=== PATIENT | female | born 1975 | race Caucasian/White ===

== ENCOUNTER → 2018-01-29 | Outpatient (CLI) | payer BC ==
--- NOTE | 2018-01-29 14:43 | MM ---
Reason for exam: screening (asymptomatic). Last mammogram was performed 1 year and 7 months ago. History: Family history of breast cancer in paternal aunt at age 55 and breast cancer in aunt. Taking hormonal contraceptives for 21 years beginning at age 17. Taking estrogen. Physical Findings: A clinical breast exam by your physician is recommended on an annual basis and results should be correlated with mammographic findings. MG 3D Screening Mammo W/Cad Bilateral CC and MLO view(s) were taken. Prior study comparison: July 04, 2016, bilateral MG 3d screening mammo w/cad. September 20, 2013, bilateral digital screening mammo w/CAD. There are scattered fibroglandular densities. Finding #1: There is questionable developing architectural distortion in the outer quadrant posterior position of the right breast slice 42/77. Finding #2: There are typically benign round calcifications in both breasts. ASSESSMENT: Incomplete: need additional imaging evaluation, BI-RAD 0 RECOMMENDATION: Special view mammogram and ultrasound of the right breast. [facility] will attempt to contact patient to return for supplemental views and ultrasound.
== END | disposition home or self-care (01) ==
LOC: RADMAMWWP 10:03
PROVIDERS: ATTEND Obstetrics & Gynecology
DX: Z12.31 Encounter for screening mammogram for malignant neoplasm of breast (principal)
CPT/HCPCS: 77063; 77067

== ENCOUNTER → 2018-02-12 | Outpatient (CLI) | payer BC ==
--- NOTE | 2018-02-12 09:34 | MM ---
Reason for exam: additional evaluation requested from abnormal screening. Last mammogram was performed less than 1 month ago. History: Family history of breast cancer in paternal aunt at age 55 and breast cancer in aunt. Taking hormonal contraceptives for 21 years beginning at age 17. Taking estrogen. Physical Findings: Nurse Summary: 0.5cm nodule in the right breast at 10 o'clock (nurse kp). MG 3D Work Up W/Cad RT Spot compression CC and ML view(s) were taken of the right breast. Prior study comparison: January 29, 2018, bilateral MG 3d screening mammo w/cad. July 04, 2016, bilateral MG 3d screening mammo w/cad. There are scattered fibroglandular densities. The questioned lateral asymmetric density does not appear to persist on additional views. Palpable marker 10 o'clock. These results were verbally communicated with the patient and result sheet given to the patient on 02/12/18. ASSESSMENT: Incomplete: need additional imaging evaluation, BI-RAD 0 RECOMMENDATION: Ultrasound of the right breast. (upper outer quadrant and palpable)
--- NOTE | 2018-02-12 09:39 | USB ---
Reason for exam: additional evaluation requested from abnormal screening. History: Family history of breast cancer in paternal aunt at age 55 and breast cancer in aunt. Taking hormonal contraceptives for 21 years beginning at age 17. Taking estrogen. US Breast Workup RT Right limited breast ultrasound including focal area of concern, retroareolar and axilla demonstrates no cystic or solid lesion seen. Scanned 9-12 o'clock including palpable. Dense tissue was noted here. These results were verbally communicated with the patient and result sheet given to the patient on 02/12/18. ASSESSMENT: Negative, BI-RAD 1 RECOMMENDATION: Return to routine screening mammogram schedule for both breasts.
== END | disposition home or self-care (01) ==
LOC: RADMAMWWP 08:13
PROVIDERS: ATTEND Obstetrics & Gynecology
DX: R92.8 Other abnormal and inconclusive findings on diagnostic imaging of breast (principal)
CPT/HCPCS: 77061; 77065

== ENCOUNTER → 2019-10-14 | Outpatient (CLI) | payer BC ==
--- NOTE | 2019-10-14 11:51 | MM ---
Reason for exam: screening (asymptomatic). Last mammogram was performed 1 year and 8 months ago. History: Family history of breast cancer in paternal aunt at age 55 and breast cancer in aunt. Taking hormonal contraceptives for 21 years beginning at age 17. Taking estrogen. Physical Findings: A clinical breast exam by your physician is recommended on an annual basis and results should be correlated with mammographic findings. MG 3D Screening Mammo W/Cad Bilateral CC and MLO view(s) were taken. Prior study comparison: February 12, 2018, right breast MG 3d work up w/cad RT. January 29, 2018, bilateral MG 3d screening mammo w/cad. There are scattered fibroglandular densities. Benign appearing bilateral calcifications. No suspicious abnormality. No significant changes when compared with prior studies. ASSESSMENT: Benign, BI-RAD 2 RECOMMENDATION: Routine screening mammogram of both breasts in 1 year.
== END ==
LOC: RADMAMWWP 10:10
PROVIDERS: ATTEND Obstetrics & Gynecology
DX: Z12.31 Encounter for screening mammogram for malignant neoplasm of breast (principal)
CPT/HCPCS: 77063; 77067

== ENCOUNTER → 2021-11-26 | Outpatient (CLI) | payer BC ==
--- NOTE | 2021-11-29 10:16 | MM ---
Reason for exam: screening (asymptomatic). Last mammogram was performed 2 years and 1 month ago. History: Family history of breast cancer in paternal aunt at age 55 and breast cancer in paternal aunt. Took hormonal contraceptives for 21 years beginning at age 17. Took estrogen for 25 years beginning at age 17. Physical Findings: A clinical breast exam by your physician is recommended on an annual basis and results should be correlated with mammographic findings. MG 3D Screening Mammo W/Cad Bilateral CC and MLO view(s) were taken. Prior study comparison: October 14, 2019, bilateral MG 3d screening mammo w/cad. February 12, 2018, right breast MG 3d work up w/cad RT. There are scattered fibroglandular densities. Distortion upper outer right breast. This finding is changed when compared with previous exams. ASSESSMENT: Incomplete: need additional imaging evaluation, BI-RAD 0 RECOMMENDATION: Special view mammogram of the right breast. If lesion persists on supplemental views, image directed ultrasound is recommended. [facility] will attempt to contact patient to return for supplemental views and ultrasound if indicated.
== END | disposition home or self-care (01) ==
LOC: RADMAMWWP 10:11
PROVIDERS: ATTEND Obstetrics & Gynecology
DX: Z12.31 Encounter for screening mammogram for malignant neoplasm of breast (principal); Z80.3 Family history of malignant neoplasm of breast
CPT/HCPCS: 77063; 77067

== ENCOUNTER → 2021-12-08 | Outpatient (CLI) | payer BC ==
--- NOTE | 2021-12-08 10:54 | MM ---
Reason for exam: additional evaluation requested from abnormal screening. Last mammogram was performed less than 1 month ago. History: Family history of breast cancer in paternal aunt at age 55 and breast cancer in paternal aunt. Took hormonal contraceptives for 21 years beginning at age 17. Took estrogen for 25 years beginning at age 17. Physical Findings: A clinical breast exam by your physician is recommended on an annual basis and results should be correlated with mammographic findings. MG 3D Work Up W/Cad RT Spot compression CC, spot compression MLO, and LM view(s) were taken of the right breast. Prior study comparison: November 26, 2021, bilateral MG 3d screening mammo w/cad. October 14, 2019, bilateral MG 3d screening mammo w/cad. There are scattered fibroglandular densities. No discrete abnormality persists on additional views. Results were given to the patient verbally at the time of the exam. ASSESSMENT: Negative, BI-RAD 1 RECOMMENDATION: Return to routine screening mammogram schedule for both breasts.
== END | disposition home or self-care (01) ==
LOC: RADMAMWWP 10:15
PROVIDERS: ATTEND Obstetrics & Gynecology
DX: R92.8 Other abnormal and inconclusive findings on diagnostic imaging of breast (principal); Z80.3 Family history of malignant neoplasm of breast
CPT/HCPCS: 77061; 77065

== ENCOUNTER 2022-06-23 17:31 | Inpatient (IN) | payer BC ==
[2022-06-23] MEDS ORDERED: ONDANSETRON 4 MG/2 ML VIAL IVP STA (18:32)
[2022-06-23] MEDS ORDERED: PANTOPRAZOLE 40 MG/10 ML VIAL IVP STA (18:32)
[2022-06-23] MEDS ORDERED: MORPHINE SULFATE 4 MG/ML SYRINGE IV STA (18:32)
[2022-06-23] MEDS ORDERED: KETOROLAC 15 MG/ML 1 ML VIAL IVP STA (18:32)
[2022-06-23] MEDS ORDERED: SODIUM CHLORIDE 0.9% 1,000 ML IV STA ×2 (18:32)
--- NOTE | 2022-06-23 18:40 | ED ---
General Adult HPI - General Chief complaint: Abdominal Pain Stated complaint: Kidney Stones, Sent by PCP Time Seen by Provider: 06/23/22 18:20 Source: patient Mode of arrival: ambulatory Limitations: no limitations - History of Present Illness Initial comments: Patient is a 47-year-old female who presents emergency Department complaining of left-sided flank pain. Patient received CT imaging at [facility] outpatient which showed a large 4 mm x 7 mm kidney stone. Is located on the left side. Patient also had a urinalysis performed earlier in the week and was diagnosed with UTI. I called by her PCP and instructed to come to the emergency department for admission to hospital for IV antibiotics. She's been having intermittent left-sided flank pain since Monday. No history of kidney stones. Endorses nausea but no vomiting. Denies diarrhea. Denies any chest pain or shortness of breath. Has chills but no fevers. Denies any other acute complaints at this time. States the pain as sharp, achy that is primarily in her left flank that radiates towards her lower back as well as around to her left groin. Denies any other acute complaints at this time. Abdomen is somewhat improved with Tylenol and Motrin at home.Denies any pain with urination. Does endorse darker urine. Denies any vaginal discharge or bleeding. - Related Data Home Medications Medication Instructions Recorded Confirmed Atorvastatin [Lipitor] 20 mg PO HS 06/23/22 06/23/22 Calcium Carbonate [Calcium] 1,200 mg PO DAILY 06/23/22 06/23/22 Cetirizine HCl [Zyrtec] 10 mg PO DAILY 06/23/22 06/23/22 Ciprofloxacin HCl [Cipro] 500 mg PO BID 06/23/22 06/23/22 Cyclobenzaprine [Flexeril] 10 mg PO HS 06/23/22 06/23/22 Fish Oil/Dha/Epa [Fish Oil 1,200 2 cap PO DAILY 06/23/22 06/23/22 mg Fish Oil] Mv,Calcium,Min/Iron/Folic/Vitk 1 tab PO DAILY 06/23/22 06/23/22 [One-A-Day Women's Complete Tab] Omeprazole [PriLOSEC] 20 mg PO DAILY 06/23/22 06/23/22 Spironolactone [Aldactone] 50 mg PO DAILY 06/23/22 06/23/22 Vitamin B Complex 1 cap PO DAILY 06/23/22 06/23/22 Allergies Allergy/AdvReac Type Severity Reaction Status Date / Time No Known Allergies Allergy Verified 06/23/22 20:31 Review of Systems ROS Statement: Those systems with pertinent positive or pertinent negative responses have been documented in the HPI. Review of Systems: CONST: Denies fever EYES: Denies blurry vision ENT: Denies nasal congestion C/V: Denies Chest pain RESP: Denies shortness of breath GI: Endorses flank pain : Denies dysuria SKIN: Denies rash. MSK: Denies joint pain. NEURO: Denies headache ROS Other: All systems not noted in ROS Statement are negative. Past Medical History Past Medical History: Coronary Artery Disease (CAD), GERD/Reflux, Hypertension History of Any Multi-Drug Resistant Organisms: None Reported Past Surgical History: Orthopedic Surgery Additional Past Surgical History / Comment(s): Gastric sleeve, ENT Past Psychological History: No Psychological Hx Reported Smoking Status: Never smoker Past Alcohol Use History: Occasional Past Drug Use History: None Reported General Exam - General Exam Comments Initial Comments: General: Appears in no acute distress. HEAD: Normal with no signs of head trauma. EYES: PERRLA, EOMI, conjunctiva normal, no discharge. ENT: Hearing grossly intact, normal oropharynx. RESPIRATORY: Clear breath sounds bilaterally. No wheezes, rales, or rhonchi. C/V: Regular rate and rhythm. S1 and S2 auscultated, no edema, peripheral pulses 2+ and intact throughout ABD: Abdomen soft, nondistended. Tender to palpation left flank with radiation towards the left groin. Left CVA tenderness on palpation. No obvious tenderness on percussion. No guarding. No peritoneal signs. No rebound tenderness. EXT: Normal range of motion, no obvious deformity SKIN: No rashes or lesions observed on exposed skin. NEURO: Alert and oriented 4. Limitations: no limitations Course Vital Signs 06/23/22 06/23/22 06/23/22 18:01 18:24 21:30 Temperature 98.5 F 99.1 F Pulse Rate 116 H 115 H Respiratory 20 16 Rate Blood Pressure 143/85 106/58 O2 Sat by Pulse 100 99 Oximetry Medical Decision Making - Medical Decision Making Based on patient's presentation and physical exam, I'm concerned for a sudden nephrolithiasis as well as possible infected stone. We will obtain basic laboratory studies. We will obtain urinalysis and blood cultures. We will obtain the CT report from the outside hospital, and in the meantime we will obtain abdominal x-ray as well as ultrasound. Patient was in agreement this plan. She'll be given IV analgesic medications as well as antiemetics and IV fluids. Vital signs within acceptable limits, she is mildly tachycardic but likely secondary to pain. We did obtain a CT imaging from an outside facility and it showed a 4 x 7 mm stone with moderate hydronephrosis on the left side. Patient's laboratory studies are remarkable for leukocytosis of 16.8. Patient has an AK eye likely secondary to her stone. Urinalysis is remarkable for a signs of a UTI. KUB x- ray as interpreted by myself reveals intra-abdominal process. Ultrasound reveals mild left-sided hydronephrosis. On reevaluation, patient is feeling improved following pain medications. Vital signs remained within acceptable limits. We'll continue IV fluids. Continue pain medications. She was started on cefepime for her infected kidney stone. She'll be admitted to the hospital at this time. She was in agreement this plan. I did consult urology, Dr. Serrano who is in agreement to consult. Requested p atient be made nothing by mouth as he will likely place a stent tomorrow. I spoke with the admitting physician, Dr. Rene accepted the patient. Patient was admitted in stable condition. - Lab Data Result diagrams: 06/23/22 18:21 06/23/22 18:21 Lab Results 06/23/22 06/23/22 06/23/22 Range/Units 18:21 18:21 18:21 WBC 16.8 H (3.8-10.6) k/uL RBC 3.90 (3.80-5.40) m/uL Hgb 12.9 (11.4-16.0) gm/dL Hct 36.3 (34.0-46.0) % MCV 93.0 (80.0-100.0) fL MCH 33.2 (25.0-35.0) pg MCHC 35.7 (31.0-37.0) g/dL RDW 12.9 (11.5-15.5) % Plt Count 283 (150-450) k/uL MPV 7.9 Neutrophils % 91 % Lymphocytes % 5 % Monocytes % 3 % Eosinophils % 0 % Basophils % 0 % Neutrophils # 15.3 H (1.3-7.7) k/uL Lymphocytes # 0.8 L (1.0-4.8) k/uL Monocytes # 0.5 (0-1.0) k/uL Eosinophils # 0.1 (0-0.7) k/uL Basophils # 0.0 (0-0.2) k/uL PT (9.0-12.0) sec INR (<1.2) APTT (22.0-30.0) sec Sodium (137-145) mmol/L Potassium (3.5-5.1) mmol/L Chloride (98-107) mmol/L Carbon Dioxide (22-30) mmol/L Anion Gap mmol/L BUN (7-17) mg/dL Creatinine (0.52-1.04) mg/dL Est GFR (CKD-EPI)AfAm (>60 ml/min/1.73 sqM) Est GFR (CKD-EPI)NonAf (>60 ml/min/1.73 sqM) Glucose (74-99) mg/dL Calcium (8.4-10.2) mg/dL Total Bilirubin (0.2-1.3) mg/dL AST (14-36) U/L ALT (4-34) U/L Alkaline Phosphatase (38-126) U/L Total Protein (6.3-8.2) g/dL Albumin (3.5-5.0) g/dL Urine Color Dark Yellow Urine Appearance Turbid H (Clear) Urine pH 6.0 (5.0-8.0) Ur Specific [place] 1.028 (1.001-1.035) Urine Protein 2+ H (Negative) Urine Glucose (UA) Negative (Negative) Urine Ketones Trace H (Negative) Urine Blood Large H (Negative) Urine Nitrite Negative (Negative) Urine Bilirubin Negative (Negative) Urine Urobilinogen 2.0 (<2.0) mg/dL Ur Leukocyte Esterase Large H (Negative) Urine RBC 48 H (0-5) /hpf Urine WBC >182 H (0-5) /hpf Urine WBC Clumps Occasional H (None) /hpf Ur Squamous Epith Cells 18 H (0-4) /hpf Urine Bacteria Rare H (None) /hpf Hyaline Casts 18 H (0-2) /lpf Urine Mucus Occasional H (None) /hpf Urine HCG, Qual Not Detected (Not Detectd) 06/23/22 06/23/22 Range/Units 18:21 19:15 WBC (3.8-10.6) k/uL RBC (3.80-5.40) m/uL Hgb (11.4-16.0) gm/dL Hct (34.0-46.0) % MCV (80.0-100.0) fL MCH (25.0-35.0) pg MCHC (31.0-37.0) g/dL RDW (11.5-15.5) % Plt Count (150-450) k/uL MPV Neutrophils % % Lymphocytes % % Monocytes % % Eosinophils % % Basophils % % Neutrophils # (1.3-7.7) k/uL Lymphocytes # (1.0-4.8) k/uL Monocytes # (0-1.0) k/uL Eosinophils # (0-0.7) k/uL Basophils # (0-0.2) k/uL PT 12.6 H (9.0-12.0) sec INR 1.2 H (<1.2) APTT 31.9 H (22.0-30.0) sec Sodium 137 (137-145) mmol/L Potassium 3.6 (3.5-5.1) mmol/L Chloride 100 (98-107) mmol/L Carbon Dioxide 25 (22-30) mmol/L Anion Gap 12 mmol/L BUN 23 H (7-17) mg/dL Creatinine 1.59 H (0.52-1.04) mg/dL Est GFR (CKD-EPI)AfAm 45 (>60 ml/min/1.73 sqM) Est GFR (CKD-EPI)NonAf 39 (>60 ml/min/1.73 sqM) Glucose 120 H (74-99) mg/dL Calcium 9.3 (8.4-10.2) mg/dL Total Bilirubin 2.0 H (0.2-1.3) mg/dL AST 27 (14-36) U/L ALT 28 (4-34) U/L Alkaline Phosphatase 116 (38-126) U/L Total Protein 7.7 (6.3-8.2) g/dL Albumin 4.2 (3.5-5.0) g/dL Urine Color Urine Appearance (Clear) Urine pH (5.0-8.0) Ur Specific [place] (1.001-1.035) Urine Protein (Negative) Urine Glucose (UA) (Negative) Urine Ketones (Negative) Urine Blood (Negative) Urine Nitrite (Negative) Urine Bilirubin (Negative) Urine Urobilinogen (<2.0) mg/dL Ur Leukocyte Esterase (Negative) Urine RBC (0-5) /hpf Urine WBC (0-5) /hpf Urine WBC Clumps (None) /hpf Ur Squamous Epith Cells (0-4) /hpf Urine Bacteria (None) /hpf Hyaline Casts (0-2) /lpf Urine Mucus (None) /hpf Urine HCG, Qual (Not Detectd) Disposition Clinical Impression: Nephrolithiasis, UTI (urinary tract infection) Narrative: infected nephrolithiasis Disposition: ADMITTED IP TO THIS [facility] Condition: Stable Referrals: Raman Justice MD [Primary Care Provider] - 1-2 days Time of Disposition: 20:00
[2022-06-23 18:53] LABS: Basophils % (A) 0 %; Eosinophils # (A) 0.1 k/uL (0-0.7); Eosinophils % (A) 0 %; HCT 36.3 % (34.0-46.0); HGB 12.9 gm/dL (11.4-16.0); Lymphocytes # (A) 0.8 k/uL (1.0-4.8); Lymphocytes % (A) 5 %; MCH 33.2 pg (25.0-35.0); MCHC 35.7 g/dL (31.0-37.0); Mean Platelet Volume 7.9; Monocytes # (A) 0.5 k/uL (0-1.0); Monocytes % (A) 3 %; Neutrophils # (A) 15.3 k/uL (1.3-7.7); Neutrophils % (A) 91 %; Platelet Count 283 k/uL (150-450); RDW 12.9 % (11.5-15.5); WBC 16.8 k/uL (3.8-10.6)
[2022-06-23 18:56] LABS: Appearance,Urine Turbid (Clear); Bilirubin,Urine Negative (Negative); Blood,Urine Large (Negative); Color,Urine Dark Yellow; Glucose,Urine (UA) Negative (Negative); Ketones,Urine Trace (Negative); Protein,Urine 2+ (Negative); Specific Gravity,Urine 1.028 (1.001-1.035)
[2022-06-23 18:57] LABS: Bacteria,Urine Rare /hpf; Hyaline Casts,Urine 18 /lpf (0-2); Leukocyte Esterase,Urine Large (Negative); Mucus,Urine Occasional /hpf; Nitrite,Urine Negative (Negative); RBC,Urine 48 /hpf (0-5); Squamous Epithelial Cell,Urine 18 /hpf (0-4); WBC,Urine >182 /hpf (0-5)
[2022-06-23 19:01] LABS: Albumin 4.2 g/dL (3.5-5.0); Calcium 9.3 mg/dL (8.4-10.2); Potassium 3.6 mmol/L (3.5-5.1); Total Protein 7.7 g/dL (6.3-8.2)
[2022-06-23 19:47] LABS: INR 1.2 (<1.2); Partial Thromboplastin Time 31.9 sec (22.0-30.0); Prothrombin Time 12.6 sec (9.0-12.0)
[2022-06-23] MEDS ORDERED: CEFEPIME 2 GM in SODIUM CHLORIDE 0.9% 100 ML IVPB STA (19:56)
--- NOTE | 2022-06-23 20:11 | US ---
EXAMINATION TYPE: US renals and bladder DATE OF EXAM: 06/23/2022 COMPARISON: NONE CLINICAL HISTORY: eval for hydro/stone on left. Patient states she had a CT at a different hospital t hat showed a kidney stone in the left kidney. Pain x 3 days. EXAM MEASUREMENTS: Right Kidney: 11.6 x 5.7 x 5.6 cm Left Kidney: 13.0 x 5.9 x 6.8 cm Right Kidney: No hydronephrosis or masses seen. No calcification seen. Left Kidney: Mild hydronephrosis seen in left kidney, no calcification seen. Bladder: Mostly empty, no pathology visualized Bilateral Jets seen: No Incidental finding: Cholelithiasis. IMPRESSION: Mild left hydronephrosis.
[2022-06-23] MEDS ORDERED: NALOXONE 0.4 MG/ML 1 ML VIAL IV PRN (20:52)
[2022-06-23] MEDS ORDERED: KETOROLAC 15 MG/ML 1 ML VIAL IVP PRN (20:52)
[2022-06-23] MEDS ORDERED: ATORVASTATIN 20 MG TAB PO SCH (21:15)
[2022-06-23] MEDS ORDERED: CYCLOBENZAPRINE 10 MG TAB PO SCH (21:15)
--- NOTE | 2022-06-23 21:31 | XR ---
EXAMINATION TYPE: XR KUB 2 views DATE OF EXAM: 06/23/2022 9:16 PM CLINICAL HISTORY: Kidney stones TECHNIQUE: 2 upright views were obtained of the abdomen and pelvis COMPARISON: None. FINDINGS: Scattered gas is seen in non-distended small bowel loops. Gas and fecal material is seen in non-diste nded colon. There is no visceromegaly or pneumoperitoneum. No calcifications over the kidneys or the expected course of the ureters or bladder. The lung bases are clear and the osseous structures are intact. IMPRESSION: No acute radiographic process.
[2022-06-23] MEDS: MORPHINE SULFATE 4 MG/ML SYRINGE IV PRN (23:09)
[2022-06-24] MEDS: HEPARIN SODIUM,PORCINE/PF 5,000 UNIT/0.5 ML SYRINGE SQ SCH ×2 (02:28→16:42)
[2022-06-24 06:10] LABS: Basophils % (A) 0 %; Eosinophils % (A) 0 %; HCT 30.3 % (34.0-46.0); HGB 10.6 gm/dL (11.4-16.0); Lymphocytes # (A) 0.7 k/uL (1.0-4.8); Lymphocytes % (A) 7 %; MCH 32.8 pg (25.0-35.0); MCV 93.7 fL (80.0-100.0); Mean Platelet Volume 8.1; Monocytes # (A) 0.4 k/uL (0-1.0); Monocytes % (A) 4 %; Neutrophils % (A) 87 %; Platelet Count 225 k/uL (150-450); RBC 3.24 m/uL (3.80-5.40); WBC 10.4 k/uL (3.8-10.6)
[2022-06-24 06:20] LABS: Calcium 7.8 mg/dL (8.4-10.2); Potassium 3.7 mmol/L (3.5-5.1)
[2022-06-24] MEDS ORDERED: PANTOPRAZOLE 40 MG TABLET PO SCH (07:30)
[2022-06-24] MEDS ORDERED: SODIUM CHLORIDE 0.9% 1,000 ML IV SCH ×2 (08:45→11:45)
[2022-06-24] MEDS ORDERED: SPIRONOLACTONE 25 MG TAB PO SCH (09:00)
--- NOTE | 2022-06-24 09:59 | P.GSCN ---
History of Present Illness Consult date: 06/24/22 Reason for Consult: Infected nephrolithiasis Requesting physician: Mike Jiménez History of present illness: The patient is a 47-year-old female who presented to the emergency department on 06/23/22 with complaints of of left-sided flank pain x [address] imaging at [facility] outpatient which showed a large left 4 mm x 7 mm kidney stone. She also has had a urinalysis performed earlier in the week and was diagnosed with UTI. Patient's laboratory studies are remarkable for leukocytosis of 16.8. Patient has an ELDER likely secondary to her stone. Urinalysis is remarkable for a signs of a UTI. KUB x-ray reveals no intra- abdominal process. Renal ultrasound reveals mild left-sided hydronephrosis. She was started on cefepime for her infected kidney stone. Review of Systems - Constitutional Reports chills, Reports fever - Cardiovascular Denies chest pain, Denies shortness of breath - Gastrointestinal Reports nausea, Denies abdominal pain - Genitourinary Genitourinary: Reports flank pain, Reports urgency, Reports urinary frequency Past Medical History Past Medical History: Coronary Artery Disease (CAD), GERD/Reflux, Hypertension History of Any Multi-Drug Resistant Organisms: None Reported Past Surgical History: Orthopedic Surgery Additional Past Surgical History / Comment(s): Gastric sleeve, ENT Past Psychological History: No Psychological Hx Reported Smoking Status: Never smoker Past Alcohol Use History: Occasional Past Drug Use History: None Reported Medications and Allergies Home Medications Medication Instructions Recorded Confirmed Type Atorvastatin [Lipitor] 20 mg PO HS 06/23/22 06/23/22 History Calcium Carbonate [Calcium] 1,200 mg PO DAILY 06/23/22 06/23/22 History Cetirizine HCl [Zyrtec] 10 mg PO DAILY 06/23/22 06/23/22 History Ciprofloxacin HCl [Cipro] 500 mg PO BID 06/23/22 06/23/22 History Cyclobenzaprine [Flexeril] 10 mg PO HS 06/23/22 06/23/22 History Fish Oil/Dha/Epa [Fish Oil 1,200 2 cap PO DAILY 06/23/22 06/23/22 History mg Fish Oil] Mv,Calcium,Min/Iron/Folic/Vitk 1 tab PO DAILY 06/23/22 06/23/22 History [One-A-Day Women's Complete Tab] Omeprazole [PriLOSEC] 20 mg PO DAILY 06/23/22 06/23/22 History Spironolactone [Aldactone] 50 mg PO DAILY 06/23/22 06/23/22 History Vitamin B Complex 1 cap PO DAILY 06/23/22 06/23/22 History Allergies Allergy/AdvReac Type Severity Reaction Status Date / Time No Known Allergies Allergy Verified 06/23/22 20:31 Surgical - Exam Vital Signs Temp Pulse Resp BP Pulse Ox 98.5 F 116 H 20 143/85 100 06/23/22 18:01 06/23/22 18:01 06/23/22 18:01 06/23/22 18:01 06/23/22 18:01 General: Well developed, well nourished. No acute distress. HEENT: Head is atraumatic, normocephalic. Lungs: Respirations even and nonlabored. Abdomen/GI: Soft. no abdominal tenderness. : Left flank tenderness Musculoskeletal/ Extremities: CABRERA, no joint deformity or swelling. No gross atrophy. Vascular: No peripheral edema Skin: Warm and dry Neurologic: Awake, alert and oriented times 3. CN II-XII grossly intact. Psychiatric: Appropriate mood and affect. Results - Labs 06/24/22 05:40 06/24/22 05:40 Abnormal Lab Results - Last 24 Hours (Table) 06/23/22 06/23/22 06/23/22 Range/Units 18:21 18:21 18:21 WBC 16.8 H (3.8-10.6) k/uL RBC (3.80-5.40) m/uL Hgb (11.4-16.0) gm/dL Hct (34.0-46.0) % Neutrophils # 15.3 H (1.3-7.7) k/uL Lymphocytes # 0.8 L (1.0-4.8) k/uL PT (9.0-12.0) sec INR (<1.2) APTT (22.0-30.0) sec Sodium (137-145) mmol/L BUN 23 H (7-17) mg/dL Creatinine 1.59 H (0.52-1.04) mg/dL Glucose 120 H (74-99) mg/dL Calcium (8.4-10.2) mg/dL Total Bilirubin 2.0 H (0.2-1.3) mg/dL Urine Appearance Turbid H (Clear) Urine Protein 2+ H (Negative) Urine Ketones Trace H (Negative) Urine Blood Large H (Negative) Ur Leukocyte Esterase Large H (Negative) Urine RBC 48 H (0-5) /hpf Urine WBC >182 H (0-5) /hpf Urine WBC Clumps Occasional H (None) /hpf Ur Squamous Epith Cells 18 H (0-4) /hpf Urine Bacteria Rare H (None) /hpf Hyaline Casts 18 H (0-2) /lpf Urine Mucus Occasional H (None) /hpf 06/23/22 06/24/22 06/24/22 Range/Units 19:15 05:40 05:40 WBC (3.8-10.6) k/uL RBC 3.24 L (3.80-5.40) m/uL Hgb 10.6 L (11.4-16.0) gm/dL Hct 30.3 L (34.0-46.0) % Neutrophils # 9.0 H (1.3-7.7) k/uL Lymphocytes # 0.7 L (1.0-4.8) k/uL PT 12.6 H (9.0-12.0) sec INR 1.2 H (<1.2) APTT 31.9 H (22.0-30.0) sec Sodium 135 L (137-145) mmol/L BUN 21 H (7-17) mg/dL Creatinine 1.35 H (0.52-1.04) mg/dL Glucose 111 H (74-99) mg/dL Calcium 7.8 L (8.4-10.2) mg/dL Total Bilirubin (0.2-1.3) mg/dL Urine Appearance (Clear) Urine Protein (Negative) Urine Ketones (Negative) Urine Blood (Negative) Ur Leukocyte Esterase (Negative) Urine RBC (0-5) /hpf Urine WBC (0-5) /hpf Urine WBC Clumps (None) /hpf Ur Squamous Epith Cells (0-4) /hpf Urine Bacteria (None) /hpf Hyaline Casts (0-2) /lpf Urine Mucus (None) /hpf Microbiology - Last 24 Hours (Table) 06/23/22 18:21 Urine Culture - Preliminary Urine,Voided Diabetes panel 06/23/22 06/24/22 Range/Units 18:21 05:40 Sodium 137 135 L (137-145) mmol/L Potassium 3.6 3.7 (3.5-5.1) mmol/L Chloride 100 106 (98-107) mmol/L Carbon Dioxide 25 24 (22-30) mmol/L BUN 23 H 21 H (7-17) mg/dL Creatinine 1.59 H 1.35 H (0.52-1.04) mg/dL Glucose 120 H 111 H (74-99) mg/dL Calcium 9.3 7.8 L (8.4-10.2) mg/dL AST 27 (14-36) U/L ALT 28 (4-34) U/L Alkaline Phosphatase 116 (38-126) U/L Total Protein 7.7 (6.3-8.2) g/dL Albumin 4.2 (3.5-5.0) g/dL Calcium panel 06/23/22 06/24/22 Range/Units 18:21 05:40 Calcium 9.3 7.8 L (8.4-10.2) mg/dL Albumin 4.2 (3.5-5.0) g/dL Pituitary panel 06/23/22 06/24/22 Range/Units 18:21 05:40 Sodium 137 135 L (137-145) mmol/L Potassium 3.6 3.7 (3.5-5.1) mmol/L Chloride 100 106 (98-107) mmol/L Carbon Dioxide 25 24 (22-30) mmol/L BUN 23 H 21 H (7-17) mg/dL Creatinine 1.59 H 1.35 H (0.52-1.04) mg/dL Glucose 120 H 111 H (74-99) mg/dL Calcium 9.3 7.8 L (8.4-10.2) mg/dL Adrenal panel 06/23/22 06/24/22 Range/Units 18:21 05:40 Sodium 137 135 L (137-145) mmol/L Potassium 3.6 3.7 (3.5-5.1) mmol/L Chloride 100 106 (98-107) mmol/L Carbon Dioxide 25 24 (22-30) mmol/L BUN 23 H 21 H (7-17) mg/dL Creatinine 1.59 H 1.35 H (0.52-1.04) mg/dL Glucose 120 H 111 H (74-99) mg/dL Calcium 9.3 7.8 L (8.4-10.2) mg/dL Total Bilirubin 2.0 H (0.2-1.3) mg/dL AST 27 (14-36) U/L ALT 28 (4-34) U/L Alkaline Phosphatase 116 (38-126) U/L Total Protein 7.7 (6.3-8.2) g/dL Albumin 4.2 (3.5-5.0) g/dL Assessment and Plan Assessment: The patient does not have a history of kidney stones, but she has had UTI's in the past. She has chronic urgency and frequency. States her pain is primarily in her left flank that radiates towards her lower back as well as around to her left groin. She has experienced some nausea, fevers, and chills. Denies any chest pain or shortness of breath. She is afebrile, WBC trending down from 16.8 upon admission, to 10. today. Urine and blood cultures pending. Serum creatinine also trending down 1.35 today from 1.59. Discussed given her UTI and obstructing stone recommend proceeding with stent insertion. This is not a definitive stone management she will require ureteroscopy with holmium laser in the future. Risks benefits and rational decision was discussed in detail - (1) Nephrolithiasis Current Visit: Yes Status: Acute Code(s): N20.0 - CALCULUS OF KIDNEY SNOMED Code(s): 84883435 Plan: - IV hydration - Continue current pain regimen - Started Rocephin - Awaiting final urine culture - NPO for stent placement today with Dr. Serrano. Impression and plan of care have been directed as dictated by the signing p hysician. Amanda Box nurse practitioner acting as scribe for signing physician. Amanda Box [facility] Palliative Care/Urology Spectralink [phone] Email: [email or web address] I personally performed and participated in the history, physical, the decision making, I agree with the assessment and plan of DIGITAL ADVISOR Time with Patient: Greater than 30
[2022-06-24] MEDS ORDERED: ENOXAPARIN 40 MG/0.4 ML SYRINGE SQ SCH (10:15)
--- NOTE | 2022-06-24 14:48 | P.HPIM ---
History of Present Illness H&P Date: 06/24/22 Chief Complaint: Left back pain. This is a pleasant 47-year-old patient follows Dr. Justice. Accompanied by her . Chronic stable medical conditions include hypertension, GERD, adult acne for which she takes Aldactone, hyperlipidemia 4 days ago patient was sitting up in a tree while hunting. Developed left back pain which she thought was from sitting up in a tree. It progressively got worse. Next became much more severe. No fever and chills. Patient landed up [facility] to [facility] ER. Computed tomography scan showed a left renal stone and possible pyelonephritis. Patient was sent down here. Started on IV cefepime IV fluids in the ER. Urology consulted. Review of systems: GEN.: Fever chills EYES: None HEENT: None NECK: None RESPIRATORY: None CARDIOVASCULAR: None GASTROINTESTINAL: None GENITOURINARY: No urinary symptoms MUSCULOSKELETAL: None LYMPHATICS: None HEMATOLOGICAL: None PSYCHIATRY: None NEUROLOGICAL: None Past medical history to include: Hypertension, hyperlipidemia, GERD, adult acne for which she uses Aldactone Social history: . Alcohol occasionally. No smoking. Family history: Reviewed, noncontributory to presentation Physical examination: VITAL SIGNS: 98.5, 116, 20, 143/85, 100% room air GENERAL: BMI 32, laying but awake, but tired. EYES: Pupils equal. Conjunctiva normal. HEENT: External appearance of nose and ears normal, oral cavity grossly normal. NECK: JVD not raised; masses not palpable. HEART: First and second heart sounds are normal; no edema. LUNGS: Respiratory rate normal; clear to auscultation. ABDOMEN: Soft, left renal angle tenderness, liver spleen not palpable, no masses palpable. PSYCH: Alert and oriented x3; mood and affect normal. MUSCULOSKELETAL:No Clubbing/cyanosis;muscles-grossly intact NEUROLOGICAL: Cranial nerves grossly intact; no facial asymmetry, power and sensation grossly intact. LYMPHATICS: No lymph nodes palpable in the axilla and neck INVESTIGATIONS, reviewed in the clinical context: 06/24/2022: White count 10.40 globin 10.6 platelets 225 progression 3.7 BUN 21 creatinine 1.35 Admission labs: White count 16.8 hemoglobin 12.9 platelets 23 potassium 3.6 BUN 23 creatinine 1.59 UA: Positive for leukoesterase, blood, WBC Renal ultrasound: Left hydronephrosis mild Computed tomography scan from [facility] shows: Left 4 mm x 7 mm kidney stone. Assessment and plan: -Acute left pyelonephritis secondary to kidney stone, causing sepsis IV fluid. IV ceftriaxone. Urology consultation. -Sepsis secondary to left kidney stone IV fluids, IV ceftriaxone -Acute kidney injury from ATN secondary to sepsis IV fluids. Follow renal function -Essential hypertension, currently blood pressure running on the lower side. Hold Aldactone -GERD PPI -Full code IV fluids. IV ceftriaxone. Hold Toradol. Resume home medications. Hold Aldactone. Urology consultation. For intervention tomorrow. Care was discussed with the patient has been out of the bedside. Subcu Lovenox. Past Medical History Past Medical History: Coronary Artery Disease (CAD), GERD/Reflux, Hypertension History of Any Multi-Drug Resistant Organisms: None Reported Past Surgical History: Orthopedic Surgery Additional Past Surgical History / Comment(s): Gastric sleeve, ENT Past Psychological History: No Psychological Hx Reported Smoking Status: Never smoker Past Alcohol Use History: Occasional Past Drug Use History: None Reported Medications and Allergies Home Medications Medication Instructions Recorded Confirmed Type Atorvastatin [Lipitor] 20 mg PO HS 06/23/22 06/23/22 History Calcium Carbonate [Calcium] 1,200 mg PO DAILY 06/23/22 06/23/22 History Cetirizine HCl [Zyrtec] 10 mg PO DAILY 06/23/22 06/23/22 History Ciprofloxacin HCl [Cipro] 500 mg PO BID 06/23/22 06/23/22 History Cyclobenzaprine [Flexeril] 10 mg PO HS 06/23/22 06/23/22 History Fish Oil/Dha/Epa [Fish Oil 1,200 2 cap PO DAILY 06/23/22 06/23/22 History mg Fish Oil] Mv,Calcium,Min/Iron/Folic/Vitk 1 tab PO DAILY 06/23/22 06/23/22 History [One-A-Day Women's Complete Tab] Omeprazole [PriLOSEC] 20 mg PO DAILY 06/23/22 06/23/22 History Spironolactone [Aldactone] 50 mg PO DAILY 06/23/22 06/23/22 History Vitamin B Complex 1 cap PO DAILY 06/23/22 06/23/22 History Allergies Allergy/AdvReac Type Severity Reaction Status Date / Time No Known Allergies Allergy Verified 06/23/22 20:31 Physical Exam Vitals: Vital Signs Temp Pulse Pulse Resp BP BP Pulse Ox 06/24/22 07:21 98.3 F 100 17 109/73 98 06/24/22 01:37 99 F 109 H 17 106/70 99 06/23/22 23:01 98.7 F 114 H 18 101/57 97 06/23/22 21:30 115 H 16 106/58 99 06/23/22 18:24 99.1 F 06/23/22 18:01 98.5 F 116 H 20 143/85 100 Intake and Output 06/23/22 06/24/22 06/24/22 22:59 06:59 14:59 Other: Weight 98.43 kg 98.43 kg Results CBC & Chem 7: 06/24/22 05:40 06/24/22 05:40 Labs: Abnormal Lab Results - Last 24 Hours (Table) 06/23/22 06/23/22 06/23/22 Range/Units 18:21 18:21 18:21 WBC 16.8 H (3.8-10.6) k/uL RBC (3.80-5.40) m/uL Hgb (11.4-16.0) gm/dL Hct (34.0-46.0) % Neutrophils # 15.3 H (1.3-7.7) k/uL Lymphocytes # 0.8 L (1.0-4.8) k/uL PT (9.0-12.0) sec INR (<1.2) APTT (22.0-30.0) sec Sodium (137-145) mmol/L BUN 23 H (7-17) mg/dL Creatinine 1.59 H (0.52-1.04) mg/dL Glucose 120 H (74-99) mg/dL Calcium (8.4-10.2) mg/dL Total Bilirubin 2.0 H (0.2-1.3) mg/dL Urine Appearance Turbid H (Clear) Urine Protein 2+ H (Negative) Urine Ketones Trace H (Negative) Urine Blood Large H (Negative) Ur Leukocyte Esterase Large H (Negative) Urine RBC 48 H (0-5) /hpf Urine WBC >182 H (0-5) /hpf Urine WBC Clumps Occasional H (None) /hpf Ur Squamous Epith Cells 18 H (0-4) /hpf Urine Bacteria Rare H (None) /hpf Hyaline Casts 18 H (0-2) /lpf Urine Mucus Occasional H (None) /hpf 06/23/22 06/24/22 06/24/22 Range/Units 19:15 05:40 05:40 WBC (3.8-10.6) k/uL RBC 3.24 L (3.80-5.40) m/uL Hgb 10.6 L (11.4-16.0) gm/dL Hct 30.3 L (34.0-46.0) % Neutrophils # 9.0 H (1.3-7.7) k/uL Lymphocytes # 0.7 L (1.0-4.8) k/uL PT 12.6 H (9.0-12.0) sec INR 1.2 H (<1.2) APTT 31.9 H (22.0-30.0) sec Sodium 135 L (137-145) mmol/L BUN 21 H (7-17) mg/dL Creatinine 1.35 H (0.52-1.04) mg/dL Glucose 111 H (74-99) mg/dL Calcium 7.8 L (8.4-10.2) mg/dL Total Bilirubin (0.2-1.3) mg/dL Urine Appearance (Clear) Urine Protein (Negative) Urine Ketones (Negative) Urine Blood (Negative) Ur Leukocyte Esterase (Negative) Urine RBC (0-5) /hpf Urine WBC (0-5) /hpf Urine WBC Clumps (None) /hpf Ur Squamous Epith Cells (0-4) /hpf Urine Bacteria (None) /hpf Hyaline Casts (0-2) /lpf Urine Mucus (None) /hpf Microbiology - Last 24 Hours (Table) 06/23/22 18:21 Urine Culture - Preliminary Urine,Voided Thrombosis Risk Factor Assmnt - Choose All That Apply Any of the Below Risk Factors Present?: Yes Each Factor Represents 1 point: Age 41-60 years, Obesity (BMI >25) Other Risk Factors: No Other congenital or acquired thrombophilia - If yes, enter type in comment: No Thrombosis Risk Factor Assessment Total Risk Factor Score: 2 Thrombosis Risk Factor Assessment Level: Low Risk
[2022-06-24] MEDS: MORPHINE SULFATE 4 MG/ML SYRINGE IV PRN (15:42)
[2022-06-24 16:24] VITALS: RESP 16; TEMP 99.2
[2022-06-24] MEDS ORDERED: LACTATED RINGERS 1,000 ML IV ONE (16:30)
[2022-06-24] MEDS ORDERED: SCOPOLAMINE 1 MG/72 HR PATCH TRANSDERM ONE (16:34)
[2022-06-24] MEDS ORDERED: ONDANSETRON 4 MG/2 ML VIAL IVP ONE (16:34)
[2022-06-24] MEDS ORDERED: ONDANSETRON 4 MG/2 ML VIAL ONE (16:34)
[2022-06-24] MEDS ORDERED: DEXAMETHASONE SOD PHOSPHATE 4 MG/ML 1 ML VIAL IVP ONE (16:37)
[2022-06-24] MEDS ORDERED: PROPOFOL 10 MG/ML 20 ML VIAL IV ONE (17:38)
[2022-06-24] MEDS ORDERED: MIDAZOLAM 2 MG/2 ML VIAL ONE (17:38)
[2022-06-24] MEDS ORDERED: fentaNYL (PF) 50 MCG/ML 2 ML AMP ONE (17:38)
[2022-06-24] MEDS ORDERED: SODIUM CHLORIDE 0.9% 100 ML with ceFAZolin 2,000 MG IV ONE ×2 (17:50)
--- NOTE | 2022-06-24 18:06 | P.OP ---
Date of Procedure: 06/24/22 Preoperative Diagnosis: Left ureteral stone Postoperative Diagnosis: Same Procedure(s) Performed: Cystoscopy left stent insertion Implants: 6-Yi by 26 cm stent in the left ureter Anesthesia: MAC Surgeon: Bobo Serrano Estimated Blood Loss (ml): 5 Pathology: none sent Condition: stable Disposition: PACU Indications for Procedure: The patient does not have a history of kidney stones, but she has had UTI's in the past. She has chronic urgency and frequency. States her pain is primarily in her left flank that radiates towards her lower back as well as around to her left groin. She has experienced some nausea, fevers, and chills. Denies any chest pain or shortness of breath. She is afebrile, WBC trending down from 16.8 upon admission, to 10. today. Urine and blood cultures pending. Serum creatinine also trending down 1.35 today from 1.59. Discussed given her UTI and obstructing stone recommend proceeding with stent insertion. This is not a definitive stone management she will require ureteroscopy with holmium laser in the future. Risks benefits and rational decision was discussed in detail Description of Procedure: Patient brought to the operating room, general anesthesia was induced. She was prepped and draped in sterile fashion was placed in a dorsal lithotomy position. Cystoscopy fitted with a 22-Yi sheath was inserted per urethra, cystoscopy was performed which showed no abnormality within the bladder. Attention was then carried to the left ureteral orifice which was intubated with a sensor wire. Next a ureteral stent was passed over the wire, the proximal curl was visualized on fluoroscopy and distal curl was visualized using the cystoscope. The bladder was emptied and the end of the case, cloudy urine was seen for protruding from the stent. Patient tolerated the procedure was taken to recovery in stable condition
[2022-06-24 18:28] VITALS: PULSE 87
[2022-06-24 18:37] VITALS: BP 95/57
--- NOTE | 2022-06-24 22:08 | FL ---
Fluoroscopy History: STENT PLACEMENT 2 sec fl
--- NOTE | 2022-06-25 16:03 | P.DS ---
Providers Date of admission: 06/23/22 20:52 Expected date of discharge: 06/24/22 Attending physician: Micheal Rene Consults: 06/23/22 19:56 Consult Physician Routine Consulting Provider: Bobo Serrano Consult Reason/Comments: infected nephrolithiasis Do you want consulting provider notified?: Already Contacted Primary care physician: [facility] Course: Chief Complaint: Left back pain. This is a pleasant 47-year-old patient follows Dr. Justice. Accompanied by her . Chronic stable medical conditions include hypertension, GERD, adult acne for which she takes Aldactone, hyperlipidemia 4 days ago patient was sitting up in a tree while hunting. Developed left back pain which she thought was from sitting up in a tree. It progressively got worse. Next became much more severe. No fever and chills. Patient landed up going to [facility] ER. Computed tomography scan showed a left renal stone and possible pyelonephritis. Patient was sent down here. Started on IV cefepime IV fluids in the ER. Urology consulted. Late in the day, Dr. serrano called. He had placed a left ureteral stent.. Patient is rather keen on going home. Dr. serrano was comfortable doing the same. Patient was discharged on Ceftin 5 mg twice a day for 7 days. Urine culture was negative. Past medical history to include: Hypertension, hyperlipidemia, GERD, adult acne for which she uses Aldactone Social history: . Alcohol occasionally. No smoking. Family history: Reviewed, noncontributory to presentation Physical examination: VITAL SIGNS: 98.5, 116, 20, 143/85, 100% room air GENERAL: BMI 32, laying but awake, but tired. EYES: Pupils equal. Conjunctiva normal. HEENT: External appearance of nose and ears normal, oral cavity grossly normal. NECK: JVD not raised; masses not palpable. HEART: First and second heart sounds are normal; no edema. LUNGS: Respiratory rate normal; clear to auscultation. ABDOMEN: Soft, left renal angle tenderness, liver spleen not palpable, no masses palpable. PSYCH: Alert and oriented x3; mood and affect normal. INVESTIGATIONS, reviewed in the clinical context: Urine culture: Negative 06/24/2022: White count 10.40 globin 10.6 platelets 225 progression 3.7 BUN 21 creatinine 1.35 Admission labs: White count 16.8 hemoglobin 12.9 platelets 23 potassium 3.6 BUN 23 creatinine 1.59 UA: Positive for leukoesterase, blood, WBC Renal ultrasound: Left hydronephrosis mild Computed tomography scan from [facility] shows: Left 4 mm x 7 mm kidney stone. Assessment and plan: -Acute left pyelonephritis secondary to kidney stone, causing sepsis IV fluid. IV ceftriaxone. Dr. serrano placed a left ureteral stent. -Sepsis secondary to left kidney stone, better IV fluids, IV ceftriaxone -Acute kidney injury from ATN secondary to sepsis: Improving IV fluids. Follow renal function -Essential hypertension, currently blood pressure running on the lower side. Hold Aldactone -GERD PPI -Full code Disposition: Home Patient Condition at Discharge: Stable Plan - Discharge Summary Discharge Rx Participant: Yes New Discharge Prescriptions: New cefUROXime axetiL [Cefuroxime] 500 mg PO BID #14 tab Oxybutynin Chloride [Ditropan XL] 10 mg PO DAILY #30 tab No Action Vitamin B Complex 1 cap PO DAILY Spironolactone [Aldactone] 50 mg PO DAILY Omeprazole [PriLOSEC] 20 mg PO DAILY Ciprofloxacin HCl [Cipro] 500 mg PO BID Atorvastatin [Lipitor] 20 mg PO HS Calcium Carbonate [Calcium] 1,200 mg PO DAILY Mv,Calcium,Min/Iron/Folic/Vitk [One-A-Day Women's Complete Tab] 1 tab PO DAILY Fish Oil/Dha/Epa [Fish Oil 1,200 mg Fish Oil] 2 cap PO DAILY Cetirizine HCl [Zyrtec] 10 mg PO DAILY Cyclobenzaprine [Flexeril] 10 mg PO HS Discharge Medication List Atorvastatin [Lipitor] 20 mg PO HS 06/23/22 [History] Calcium Carbonate [Calcium] 1,200 mg PO DAILY 06/23/22 [History] Cetirizine HCl [Zyrtec] 10 mg PO DAILY 06/23/22 [History] Ciprofloxacin HCl [Cipro] 500 mg PO BID 06/23/22 [History] Cyclobenzaprine [Flexeril] 10 mg PO HS 06/23/22 [History] Fish Oil/Dha/Epa [Fish Oil 1,200 mg Fish Oil] 2 cap PO DAILY 06/23/22 [History] Mv,Calcium,Min/Iron/Folic/Vitk [One-A-Day Women's Complete Tab] 1 tab PO DAILY 11/10/22 [History] Omeprazole [PriLOSEC] 20 mg PO DAILY 06/23/22 [History] Spironolactone [Aldactone] 50 mg PO DAILY 06/23/22 [History] Vitamin B Complex 1 cap PO DAILY 06/23/22 [History] Oxybutynin Chloride [Ditropan XL] 10 mg PO DAILY #30 tab 06/24/22 [Rx] cefUROXime axetiL [Cefuroxime] 500 mg PO BID #14 tab 06/24/22 [Rx] Follow up Appointment(s)/Referral(s): Raman Justice MD [Primary Care Provider] - 1-2 days Patient Instructions/Handouts: Cystoscopy (DC), Ureteral Stent Placement (DC) Discharge Disposition: HOME SELF-CARE
== END 2022-06-24 19:51 | disposition home or self-care (01) | DRG 853 ==
LOC: EC 17:31 → 4SSUR 20:52
PROVIDERS: ADMIT Hospitalist; ATTEND Hospitalist
PROC: 0T778DZ Dilation of Left Ureter with Intraluminal Device, Via Natural or Artificial Opening Endoscopic (ICD-10-PCS; principal; 2022-06-24 08:55)
DX: A41.9 Sepsis, unspecified organism (principal); N17.0 Acute kidney failure with tubular necrosis; N13.6 Pyonephrosis; N20.2 Calculus of kidney with calculus of ureter; I10 Essential (primary) hypertension; I25.10 Atherosclerotic heart disease of native coronary artery without angina pectoris; E78.5 Hyperlipidemia, unspecified; K21.9 Gastro-esophageal reflux disease without esophagitis; Z79.899 Other long term (current) drug therapy; Z98.84 Bariatric surgery status
CPT/HCPCS: 36415; 74018; 76770; 80048; 80053; 81001; 81025; 85025; 85610; 85730; 87040; 87086; 96374; 96375; 99285

== ENCOUNTER → 2022-07-15 | Outpatient (CLI) | payer BC ==
[2022-07-15 23:19] LABS: Basophils # (A) 0.04 X 10*3/uL (0.00-0.10); Basophils % (A) 0.5 %; Eosinophils # (A) 0.18 X 10*3/uL (0.04-0.35); Eosinophils % (A) 2.4 %; HCT 37.9 % (37.2-46.3); HGB 12.1 g/dL (12.0-15.0); Immature Grans, Automated 0.1 %; Lymphocytes # (A) 1.95 X 10*3/uL (0.90-5.00); Lymphocytes % (A) 26.5 %; MCH 30.6 pg (27.0-32.0); MCHC 31.9 g/dL (32.0-37.0); MCV 95.9 fL (80.0-97.0); Mean Platelet Volume 9.8 fL (9.5-12.2); Monocytes # (A) 0.43 X 10*3/uL (0.20-1.00); Monocytes % (A) 5.8 %; NRBC Per 100 WBC 0 /100 WBCS (0.0-0.0); Neutrophils # (A) 4.76 X 10*3/uL (1.80-7.70); Neutrophils % (A) 64.7 %; Platelet Count 373 X 10*3/uL (140-440); RBC 3.95 X 10*6/uL (4.10-5.20); RDW 13.2 % (11.5-14.5); WBC 7.37 X 10*3/uL (4.50-10.00)
[2022-07-15 23:25] LABS: African American GFR (CKD) 102.5 (60.0-200.0); Anion Gap 9.8 mmol/L (10.00-18.00); BUN/Creat Ratio 10.88 Ratio (12.00-20.00); Blood Urea Nitrogen 8.7 mg/dL (9.0-27.0); Calcium 9.5 mg/dL (8.7-10.3); Carbon Dioxide 29.2 mmol/L (20.0-27.5); Non-African American GFR(CKD) 88.4 (60.0-200.0); Potassium 3.8 mmol/L (3.5-5.5)
[2022-07-16 01:58] LABS: Appearance,Urine Clear (Clear); Bilirubin,Urine Negative (Negative); Blood,Urine Moderate (Negative); Color,Urine Yellow (Yellow); Ketones,Urine Negative (Negative); Nitrite,Urine Negative (Negative); PH, Urine 6.5 (5.0-8.0); Specific Gravity,Urine 1.009 (1.001-1.030); Urobilinogen,Urine 0.2 (0.2,1.0)
[2022-07-16 03:24] LABS: Bacteria,Urine None Seen /HPF (None Seen)
== END | disposition home or self-care (01) ==
LOC: LABPAT 14:40
PROVIDERS: ATTEND Urology
DX: Z01.812 Encounter for preprocedural laboratory examination (principal); N20.1 Calculus of ureter; R31.29 Other microscopic hematuria
CPT/HCPCS: 80048; 81001; 85025; 87086

== ENCOUNTER 2022-07-25 08:30 | Day surgery (SDC) | payer BC ==
[2022-07-22 09:07] VITALS: BMI 31.7
[~2022-07-25 08:30] MED LIST: DEXAMETHASONE SOD PHOSPHATE 4 MG/ML 1 ML VIAL IV ONE; GENTAMICIN 120 MG in SODIUM CHLORIDE 0.9% 100 ML IVPB PRN; LACTATED RINGERS 1,000 ML IV SCH; MIDAZOLAM 2 MG/2 ML VIAL IV PRN; ONDANSETRON 4 MG/2 ML VIAL IVP ONE; SCOPOLAMINE 1 MG/72 HR PATCH TRANSDERM ONE
--- NOTE | 2022-07-25 08:53 | XR ---
EXAMINATION TYPE: XR KUB DATE OF EXAM: 07/25/2022 HISTORY: Pain Comparison: None.Single KUB is submitted for interpretation. Findings: Right renal calculi: 3.2 mm calculus right kidney. Right ureteral calculi: None Visualized. Left renal calculi: Left ureteral stent is in place. Calcifications are noted along the distal compo nent of the stent near the UVJ measuring approximately 2.5 mm in transverse dimension. Left ureteral calculi: None Visualized. Pelvic calcifications: None Visualized. Bowel gas pattern is unremarkable. No free air. No mass effects. IMPRESSION: 1. As above
--- NOTE | 2022-07-25 09:08 | P.HPIHPCON ---
History of Present Illness H&P Date: 07/25/22 Chief Complaint: Left ureteral stone This is a 47-year-old female with a history of a 5 mm left-sided distal ureteral stone underwent left-sided stent insertion on June 24 at that time she was symptomatic and had urinary tract infection. She presents today for definitive stone management. Option of left-sided ureteroscopy with holmium laser was discussed with her. Discussed risk which includes but not limited to bleeding, infection, injury to ureter. Discussed also risk from anesthesia. She understood all the risk and agreed to proceed Consent for Procedure: I have explained the operation/procedure to the patient, including the risks, benefits, side effects, alternative therapies (including not receiving the proposed treatment or service), the likelihood of the patient achieving his/her goals, and potential recuperation problems for the procedure/sedation/analgesia, as well as any blood products, if indicated. I also explained to the patient the risks, benefits and side effects of the alternatives, as well as the risks relat ed to not receiving the proposed procedure, care, treatment, or services. Past Medical History Past Medical History: GERD/Reflux, Hyperlipidemia, Hypertension Additional Past Medical History / Comment(s): kidney stones, adult acne, clinches teeth at night-wears mouth guard and takes flexeril for this., currently having teeth implants done. , uti/Bladder infection History of Any Multi-Drug Resistant Organisms: None Reported Past Surgical History: Orthopedic Surgery, Uterine Ablation Additional Past Surgical History / Comment(s): Gastric sleeve (2014)., hx broken nose with surgery., arthroscopies right knee ., right knee ligament and scrapping, 06/24/22 cystoscopy with left ureteral stent. Past Anesthesia/Blood Transfusion Reactions: No Reported Reaction, Motion Sickness Past Psychological History: No Psychological Hx Reported Smoking Status: Former smoker Past Alcohol Use History: Occasional Additional Past Alcohol Use History / Comment(s): quit smoking 2009, started smoking age 16., hx of 7 cigarettes/day Past Drug Use History: None Reported Medications and Allergies Home Medications Medication Instructions Recorded Confirmed Type Atorvastatin [Lipitor] 20 mg PO HS 06/23/22 07/22/22 History Calcium Carbonate [Calcium] 1,200 mg PO DAILY 06/23/22 07/22/22 History Cetirizine HCl [Zyrtec] 10 mg PO DAILY 06/23/22 07/22/22 History Cyclobenzaprine [Flexeril] 10 mg PO HS 06/23/22 07/22/22 History Fish Oil/Dha/Epa [Fish Oil 1,200 2 cap PO DAILY 06/23/22 07/22/22 History mg Fish Oil] Mv,Calcium,Min/Iron/Folic/Vitk 1 tab PO DAILY 06/23/22 07/22/22 History [One-A-Day Women's Complete Tab] Omeprazole [PriLOSEC] 20 mg PO DAILY 06/23/22 07/22/22 History Spironolactone [Aldactone] 50 mg PO DAILY 06/23/22 07/22/22 History Vitamin B Complex 1 cap PO DAILY 06/23/22 07/22/22 History Oxybutynin Chloride [Ditropan XL] 10 mg PO DAILY #30 tab 06/24/22 07/22/22 Rx Acetaminophin (Unknown Dose) 1 dose PO DIRECTED PRN 07/22/22 History Cephalexin [Keflex] 500 mg PO Q8HR 07/22/22 07/22/22 History Allergies Allergy/AdvReac Type Severity Reaction Status Date / Time No Known Allergies Allergy Verified 07/22/22 08:27 Surgical - Exam - General no distress, moderate pain - Eyes normal ocular movement, no pale - ENT normal nares, normal mucosa - Respiratory normal expansion, normal respiratory effort - Abdomen Abdomen: soft, non tender - Psychiatric oriented to time, oriented to person, oriented to place Assessment and Plan Assessment: OR for left-sided ureteroscopy, holmium laser lithotripsy, stone basketing and stent removal
[2022-07-25] MEDS ORDERED: PROPOFOL 10 MG/ML 20 ML VIAL IV ONE (09:55)
[2022-07-25] MEDS ORDERED: KETOROLAC 15 MG/ML 1 ML VIAL ONE (09:55)
[2022-07-25] MEDS ORDERED: LIDOCAINE 2% INJ 20 MG/ML (2 ML VIAL) ONE (09:55)
[2022-07-25] MEDS ORDERED: fentaNYL (PF) 50 MCG/ML 2 ML AMP ONE (09:55)
[2022-07-25] MEDS ORDERED: MIDAZOLAM 2 MG/2 ML VIAL ONE (09:55)
[2022-07-25 09:58] VITALS: RESP 16
--- NOTE | 2022-07-25 10:49 | P.OP ---
Date of Procedure: 07/25/22 Preoperative Diagnosis: Left ureteral stone, right renal stone Postoperative Diagnosis: Same Procedure(s) Performed: Cystoscopy, bilateral ureteroscopy, left holmium laser lithotripsy, stone basketing and stent removal Implants: None Anesthesia: CARTERA Surgeon: Bobo Serrano Estimated Blood Loss (ml): 5 Pathology: other (lef ureteral stone) Condition: stable Disposition: PACU Indications for Procedure: This is a 47-year-old female with a history of a 5 mm left-sided distal ureteral stone underwent left-sided stent insertion on June 24 at that time she was symptomatic and had urinary tract infection. She presents today for definitive stone management. Option of left-sided ureteroscopy with holmium laser was discussed with her. Discussed risk which includes but not limited to bleeding, infection, injury to ureter. Discussed also risk from anesthesia. Of note KUB in the morning also showed evidence of a possible 3 mm right-sided renal stone.she is having minimal symptoms at this time. she would like to address the stone at the same setting. Discussed with her if able to pass the ureteroscope without ureteral dilation then will remove the right sided renal stone today She understood all the risk and agreed to proceed Operative Findings: Left distal ureteral stone, no right-sided stones seen on ureteroscopy Description of Procedure: Patient brought to the operating room, general anesthesia was induced. She was prepped and draped in sterile fashion and placed in a dorsal lithotomy position. Cystoscopy fitted with a 21-Serbian sheath was inserted per urethra, cystoscopy was performed which showed no abnormality within the bladder. Attention was then carried to the left ureteral orifice, the stent was visualized protruding from the ureteral orifice the stent was removed intact. Next the semirigid ureteroscope was advanced up the urethra and up the left ureteral orifice. The stone was encountered in the distal ureter. Using the holmium laser the stone was fragmented. Stone fragments were removed using the stone basket. At this time the ureteroscope was advanced into the proximal ureter which showed no evidence of stones. Pullback ureteroscopy was performed showed no injury to the ureter or any sizable fragments. At this time attention was carried to the right side, a sensor wire was advanced through the ureteroscope and up into the kidney. Next under fluoroscopy a flexible ureteroscope was passed over the wire and into the kidney. Complete renoscopy was performed which showed no evidence of stones within the kidney. All calyces were evaluated. Pullback ureteroscopy was performed showed no evidence of ureteral stone or injury to the ureter. The bladder was emptied at the end of the case. Patient tolerated the procedure well was taken to recovery in stable condition
[2022-07-25 11:04] VITALS: TEMP 97.8
--- NOTE | 2022-07-25 11:04 | FL ---
EXAMINATION TYPE: FL urography retrograde DATE OF EXAM: 07/25/2022 COMPARISON: NONE HISTORY: Fluoroscopy time. Fluoroscopy was provided to the referring clinician.
[2022-07-25] MEDS: HYDROmorphone 0.5 MG/0.5 ML SYRINGE IVP PRN (11:07)
[2022-07-25 12:06] VITALS: BP 148/76; PULSE 76
== END 2022-07-25 12:31 | disposition home or self-care (01) ==
LOC: OR 08:30
PROVIDERS: ATTEND Urology
DX: N20.2 Calculus of kidney with calculus of ureter (principal); Z87.440 Personal history of urinary (tract) infections; N28.89 Other specified disorders of kidney and ureter; E78.5 Hyperlipidemia, unspecified; I10 Essential (primary) hypertension; K21.9 Gastro-esophageal reflux disease without esophagitis; Z98.84 Bariatric surgery status; Z98.890 Other specified postprocedural states; Z87.891 Personal history of nicotine dependence; F10.10 Alcohol abuse, uncomplicated; Z79.01 Long term (current) use of anticoagulants; Z79.1 Long term (current) use of non-steroidal anti-inflammatories (NSAID); Z79.2 Long term (current) use of antibiotics; Z79.83 Long term (current) use of bisphosphonates; Z79.02 Long term (current) use of antithrombotics/antiplatelets; Z79.891 Long term (current) use of opiate analgesic; Z79.899 Other long term (current) drug therapy
CPT/HCPCS: 52353; 81025; 82365; 74420; 74018; C1758; C1769; J2250; J1100; J0690; J2405; J3010; J1885; J2704; J1170; J2001

== ENCOUNTER 2022-07-26 21:55 | Emergency (ER) | payer BC ==
[2022-07-26 22:16] VITALS: TEMP 97.7
--- NOTE | 2022-07-26 22:41 | ED ---
General Adult HPI - General Chief complaint: Back Pain/Injury Stated complaint: Right Kidney Pain Time Seen by Provider: 07/26/22 21:56 Source: patient Mode of arrival: ambulatory Limitations: no limitations - History of Present Illness Initial comments: Dictation was produced using [employer] dictation software. please excuse any grammatical, word or spelling errors. Chief Complaint: 47-year-old female presents emergency department for right- sided flank pain History of Present Illness: Since 47-year-old female yesterday she had procedure performed by urology. She had cystoscopy, bilateral ureteroscopy lithotripsy in the left. Patient states she was doing fine postoperatively however today since 7 PM she started developing a dull ache to the right flank. She states that ureteroscopy was performed on right side with no abnormalities. Patient is unsure if she is having a urinary tract infection. She did receive multiple do ses of antibiotics recently. Denies any fever, chills or night sweats. She states that the pain as a dull ache that is not colicky in nature. No associated with nausea or vomiting. The ROS documented in this emergency department record has been reviewed and confirmed by me. Those systems with pertinent positive or negative responses have been documented in the HPI. All other systems are other negative and/or noncontributory. PHYSICAL EXAM: General Impression: Alert and oriented x3, not in acute distress HEENT: Normocephalic atraumatic, extra-ocular movements intact, pupils equal and reactive to light bilaterally, mucous membranes moist. Cardiovascular: Heart regular rate and rhythm Chest: Able to complete full sentences, no retractions, no tachypnea Abdomen: abdomen soft, non-tender, non-distended, no organomegaly Musculoskeletal: Pulses present and equal in all extremities, no peripheral edema Motor: no focal deficits noted Neurological: CN II-XII grossly intact, no focal motor or sensory deficits noted Skin: Intact with no visualized rashes Psych: Normal affect and mood ED course: 47-year-old well-appearing female presents to emergency department with postoperative right-sided flank pain. Vital signs upon arrival are within acceptable limits. Nursing notes and chart review was performed Return evaluation obtained. CBC and metabolic panel within acceptable limits. Urinalysis shows 40 white blood cells with 19 red blood cells. Computed tomography scan of the abdomen and pelvis shows bilateral mild hydronephrosis and hydroureter. There is delayed right-sided Polygram. There is likely a faint small calculus in the distal right ureter. Patient reevaluated bedside at 11:55 PM 5 in stable medical condition. At this point patient's symptomatology likely secondary to post operative pain. No obvious complicating factors at this time. Patient be discharged and advised to contact Dr. Serrano first in the morning tomorrow. Patient is agreeable with plan. - Related Data Home Medications Medication Instructions Recorded Confirmed Atorvastatin [Lipitor] 20 mg PO HS 06/23/22 07/25/22 Calcium Carbonate [Calcium] 1,200 mg PO DAILY 06/23/22 07/25/22 Cetirizine HCl [Zyrtec] 10 mg PO DAILY 06/23/22 07/25/22 Cyclobenzaprine [Flexeril] 10 mg PO HS 06/23/22 07/25/22 Fish Oil/Dha/Epa [Fish Oil 1,200 2 cap PO DAILY 06/23/22 07/25/22 mg Fish Oil] Mv,Calcium,Min/Iron/Folic/Vitk 1 tab PO DAILY 06/23/22 07/25/22 [One-A-Day Women's Complete Tab] Omeprazole [PriLOSEC] 20 mg PO DAILY 06/23/22 07/25/22 Spironolactone [Aldactone] 50 mg PO DAILY 06/23/22 07/25/22 Vitamin B Complex 1 cap PO DAILY 06/23/22 07/25/22 Acetaminophin (Unknown Dose) 1 dose PO DIRECTED PRN 07/22/22 07/25/22 Cephalexin [Keflex] 500 mg PO Q8HR 07/22/22 07/25/22 Previous Rx's Medication Instructions Recorded Oxybutynin Chloride [Ditropan XL] 10 mg PO DAILY #30 tab 06/24/22 Ketorolac [Toradol] 10 mg PO Q6HR #10 tab 07/25/22 Oxybutynin Chloride [Ditropan XL] 5 mg PO DAILY #2 tab 07/25/22 Allergies Allergy/AdvReac Type Severity Reaction Status Date / Time No Known Allergies Allergy Verified 07/26/22 22:16 Review of Systems ROS Statement: Those systems with pertinent positive or pertinent negative responses have been documented in the HPI. ROS Other: All systems not noted in ROS Statement are negative. Past Medical History Past Medical History: Coronary Artery Disease (CAD), GERD/Reflux, Hypertension History of Any Multi-Drug Resistant Organisms: None Reported Past Surgical History: Orthopedic Surgery Additional Past Surgical History / Comment(s): Gastric sleeve, ENT Past Psychological History: No Psychological Hx Reported Smoking Status: Former smoker Past Alcohol Use History: Occasional Past Drug Use History: None Reported General Exam Limitations: no limitations Course Vital Signs 07/26/22 22:13 Temperature 97.7 F Pulse Rate 101 H Respiratory 20 Rate Blood Pressure 158/103 O2 Sat by Pulse 100 Oximetry Medical Decision Making - Lab Data Result diagrams: 07/26/22 22:40 07/26/22 22:40 Lab Results 07/26/22 07/26/22 07/26/22 Range/Units 22:30 22:40 22:40 WBC 12.4 H (3.8-10.6) k/uL RBC 3.96 (3.80-5.40) m/uL Hgb 12.5 (11.4-16.0) gm/dL Hct 36.3 (34.0-46.0) % MCV 91.6 (80.0-100.0) fL MCH 31.6 (25.0-35.0) pg MCHC 34.5 (31.0-37.0) g/dL RDW 13.4 (11.5-15.5) % Plt Count 326 (150-450) k/uL MPV 7.8 Neutrophils % 71 % Lymphocytes % 21 % Monocytes % 5 % Eosinophils % 1 % Basophils % 0 % Neutrophils # 8.8 H (1.3-7.7) k/uL Lymphocytes # 2.6 (1.0-4.8) k/uL Monocytes # 0.7 (0-1.0) k/uL Eosinophils # 0.1 (0-0.7) k/uL Basophils # 0.1 (0-0.2) k/uL Sodium 140 (137-145) mmol/L Potassium 3.8 (3.5-5.1) mmol/L Chloride 106 (98-107) mmol/L Carbon Dioxide 25 (22-30) mmol/L Anion Gap 9 mmol/L BUN 19 H (7-17) mg/dL Creatinine 1.03 (0.52-1.04) mg/dL Est GFR (CKD-EPI)AfAm 75 (>60 ml/min/1.73 sqM) Est GFR (CKD-EPI)NonAf 65 (>60 ml/min/1.73 sqM) Glucose 105 H (74-99) mg/dL Calcium 9.6 (8.4-10.2) mg/dL Urine Color Light Yellow Urine Appearance Cloudy H (Clear) Urine pH 5.0 (5.0-8.0) Ur Specific [place] 1.012 (1.001-1.035) Urine Protein Trace H (Negative) Urine Glucose (UA) Negative (Negative) Urine Ketones Negative (Negative) Urine Blood Large H (Negative) Urine Nitrite Negative (Negative) Urine Bilirubin Negative (Negative) Urine Urobilinogen <2.0 (<2.0) mg/dL Ur Leukocyte Esterase Large H (Negative) Urine RBC 19 H (0-5) /hpf Urine WBC 40 H (0-5) /hpf Ur Squamous Epith Cells 5 H (0-4) /hpf Urine Bacteria Occasional H (None) /hpf Urine Mucus Rare H (None) /hpf Disposition Clinical Impression: Flank pain Disposition: HOME SELF-CARE Condition: Good Instructions (If sedation given, give patient instructions): Flank Pain (ED) Is patient prescribed a controlled substance at d/c from ED?: No Referrals: Bobo Serrano MD [STAFF PHYSICIAN] - 1-2 days Time of Disposition: 23:56
[2022-07-26 23:00] LABS: Basophils # (A) 0.1 k/uL (0-0.2); Basophils % (A) 0 %; Eosinophils # (A) 0.1 k/uL (0-0.7); Eosinophils % (A) 1 %; HCT 36.3 % (34.0-46.0); HGB 12.5 gm/dL (11.4-16.0); Lymphocytes # (A) 2.6 k/uL (1.0-4.8); Lymphocytes % (A) 21 %; MCH 31.6 pg (25.0-35.0); MCHC 34.5 g/dL (31.0-37.0); MCV 91.6 fL (80.0-100.0); Mean Platelet Volume 7.8; Monocytes # (A) 0.7 k/uL (0-1.0); Monocytes % (A) 5 %; Neutrophils # (A) 8.8 k/uL (1.3-7.7); Neutrophils % (A) 71 %; Platelet Count 326 k/uL (150-450); RBC 3.96 m/uL (3.80-5.40); RDW 13.4 % (11.5-15.5); WBC 12.4 k/uL (3.8-10.6)
[2022-07-26 23:13] LABS: Calcium 9.6 mg/dL (8.4-10.2); Potassium 3.8 mmol/L (3.5-5.1)
[2022-07-26 23:15] LABS: Appearance,Urine Cloudy (Clear); Bacteria,Urine Occasional /hpf; Bilirubin,Urine Negative (Negative); Blood,Urine Large (Negative); Color,Urine Light Yellow; Glucose,Urine (UA) Negative (Negative); Ketones,Urine Negative (Negative); Leukocyte Esterase,Urine Large (Negative); Mucus,Urine Rare /hpf; Nitrite,Urine Negative (Negative); Protein,Urine Trace (Negative); RBC,Urine 19 /hpf (0-5); Specific Gravity,Urine 1.012 (1.001-1.035); Squamous Epithelial Cell,Urine 5 /hpf (0-4); Urobilinogen,Urine <2.0 mg/dL (<2.0); WBC,Urine 40 /hpf (0-5)
--- NOTE | 2022-07-26 23:34 | CT ---
EXAMINATION TYPE: CT abdomen pelvis w con DATE OF EXAM: 07/26/2022 COMPARISON: None HISTORY: right flank pain. stent in left kidney 07-25-22. hx of kidney stones CT DLP: 1526.7 mGycm Automated exposure control for dose reduction was used. CONTRAST: Performed with IV Contrast, patient injected with 100 mL of Isovue 300. Images obtained from the diaphragm to the floor the pelvis with IV contrast. The lung bases are clear. No pleural effusion. Heart size is normal. No pericardial effusion. Liver s pleen pancreas appear intact. There are clips from gastric bariatric surgery. Gallbladder is intact. The bile ducts are not dilated. There is no adrenal mass. There is bilateral hydronephrosis and hydroureter. There is possible faint 2 mm calculus in the distal right ureter. There is right-sided perinephric fat stranding and edema. R ight kidney is mildly enlarged. There is small air bubble in the right kidney consistent with previou s catheter. No retroperitoneal adenopathy. The appendix is posterior and appears normal. There is no mesenteric edema. There is no ascites or free air. There are multiple sigmoid diverticula. No diverti culitis. There is a 3 cm cyst on the left ovary. The lumbar vertebrae have normal spacing and alignment. Posterior elements are intact. The bony pelvi s is intact. The hip joints are intact. IMPRESSION: Bilateral mild hydronephrosis and hydroureter. Delayed right sided pyelogram compared to the left. Th ere is likely a faint small calculus distal right ureter. No calculus seen in the left ureter. No evidence of appendicitis. Colonic diverticulosis without diverticulitis.
[2022-07-27 00:04] VITALS: BP 136/88; PULSE 82; RESP 18
== END 2022-07-27 00:04 | disposition home or self-care (01) ==
LOC: EC 21:55
DX: N13.2 Hydronephrosis with renal and ureteral calculous obstruction (principal); I10 Essential (primary) hypertension; I25.10 Atherosclerotic heart disease of native coronary artery without angina pectoris; K21.9 Gastro-esophageal reflux disease without esophagitis; Z87.891 Personal history of nicotine dependence; Z79.83 Long term (current) use of bisphosphonates; Z79.899 Other long term (current) drug therapy
CPT/HCPCS: 99284; 36415; 80048; 85025; 81001; 87086; 74177; Q9967

== ENCOUNTER → 2022-12-02 | Outpatient (CLI) | payer BC ==
--- NOTE | 2022-12-05 08:41 | MM ---
Reason for Exam: Screening (asymptomatic). Last screening mammogram was performed 12 month(s) ago. Patient History: Menarche at age 10. First Full-Term at age 27. Estrogen, starting at age 17 for 25 years. Hormonal Contraceptives, starting at age 17 for 21 years. Paternal aunt had breast cancer, age 55. Paternal aunt had breast cancer. Risk Values: Svetlana 5 year model risk: 1.0%. NCI Lifetime model risk: 11.4%. Prior Study Comparison: 10/14/2019 Bilateral Screening Mammogram, [facility]. 11/26/2021 Bilateral Screening Mammogram, [facility]. 12/08/2021 Right Diagnostic Mammogram, [facility]. Tissue Density: The breast tissue is almost entirely fat. Findings: Analyzed By CAD. There is no suspicious group of microcalcifications or new suspicious mass in either breast. Overall Assessment: Negative, BI-RAD 1 Management: Screening Mammogram of both breasts in 1 year. A clinical breast exam by your physician is recommended on an annual basis and results should be correlated with mammographic findings. [facility] will attempt to contact patient to return for supplemental views and ultrasound if indicated. Electronically signed and approved by: Gt Jalloh DO
== END | disposition home or self-care (01) ==
LOC: RADMAMWWP 09:06
PROVIDERS: ATTEND Obstetrics & Gynecology
DX: Z12.31 Encounter for screening mammogram for malignant neoplasm of breast (principal); Z80.3 Family history of malignant neoplasm of breast
CPT/HCPCS: 77063; 77067

== ENCOUNTER → 2024-08-08 | Outpatient (CLI) | payer BC ==
--- NOTE | 2024-08-08 10:04 | MM ---
Reason for Exam: Screening (asymptomatic). Last mammogram was performed 1 year(s) and 8 month(s) ago. Patient History: Menarche at age 10. First Full-Term at age 27. Estrogen, starting at age 17 for 25 years. Hormonal Contraceptives, starting at age 17 for 21 years. Paternal aunt had breast cancer, age 55. Paternal aunt had breast cancer. Risk Values: Svetlana 5 year model risk: 1.1%. NCI Lifetime model risk: 11.1%. Prior Study Comparison: 11/26/2021 Bilateral Screening Mammogram, [facility]. 12/08/2021 Right Diagnostic Mammogram, [facility]. 12/02/2022 Bilateral MG 3D screening mammo w/cad, [facility]. Tissue Density: There are scattered areas of fibroglandular density. Findings: Analyzed By CAD. There is no suspicious group of microcalcifications or new suspicious mass in either breast. There is no suspicious group of microcalcifications or new suspicious mass in either breast. Stable benign calcifications. Chronic nodularity left breast likely related to benign lymph nodes stable. Overall Assessment: Benign, BI-RAD 2 Management: Screening Mammogram of both breasts in 1 year. . Patient should continue monthly self-breast exams. A clinical breast exam by your physician is recommended on an annual basis. This exam should not preclude additional follow-up of suspicious palpable abnormalities. Note on Svetlana scores and lifetime risk: 1. A Svetlana score greater than 3% is considered moderate risk. If this is the case, consider specialist referral to assess eligibility for a risk reducing agent. 2. If overall lifetime risk for the development of breast cancer is 20% or higher, the patient may qualify for future screening with alternating mammogram and breast MRI. [facility], , 08/08/2024 10:01 AM. Electronically signed and approved by: Jeevan Chavarria M.D. Radiologis
== END | disposition home or self-care (01) ==
LOC: RADMAMWWP 09:28
PROVIDERS: ATTEND Family Medicine
DX: Z12.31 Encounter for screening mammogram for malignant neoplasm of breast (principal); R92.323 Mammographic fibroglandular density, bilateral breasts; Z80.3 Family history of malignant neoplasm of breast
CPT/HCPCS: 77063; 77067